=== PATIENT | male | born 1970 | race Caucasian/White ===

== ENCOUNTER 2022-05-28 09:37 | Inpatient (IN) ==
[2022-05-28] MEDS ORDERED: Tdap (Boostrix) Vaccine 0.5 ML SYRINGE IM ONE (10:46)
[2022-05-28 12:16] LABS: Basophils % 0.6 %; Eosinophils # 0.1 K/mcL (0.0-0.6); Eosinophils % 0.8 %; Hematocrit 42.4 % (37.5-50.1); Hemoglobin 13.7 g/dL (12.9-16.9); Immature Granulocytes % 0.3 % (0-4); Lymphocytes # 1.9 K/mcL (0.6-4.6); Lymphocytes % 26.9 %; Mean Corpuscular HGB Conc 32.3 g/dL (31.6-35.5); Mean Corpuscular Volume 89.6 fL (83.0-100.0); Mean Platelet Volume 10.1 fL (9.4-12.4); Monocytes # 0.8 K/mcL (0.0-1.3); Monocytes % 10.7 %; Neutrophils # 4.3 K/mcL (1.6-8.9); Platelet Count 240 K/mcL (140-400); Red Blood Count 4.73 M/mcL (4.19-5.50); Red Cell Distribution Width 13.6 % (11.5-14.5); Segmented Neutrophils % 60.7 %; White Blood Count 7.1 K/mcL (4.3-11.1)
[2022-05-28 12:47] LABS: Estimated Average Glucose 97 mg/dl
[2022-05-28 12:49] LABS: Acetaminophen < 10 mcg/mL (10-20); Alanine Aminotransferase 18 Units/L (7-52); Albumin/Globulin Ratio 1.7 (1.1-2.2); Alkaline Phosphatase 48 Units/L (34-104); Aspartate Amino Transferase 16 Units/L (13-39); BUN/Creatinine Ratio 14 (6-26); Bilirubin,Direct 0.1 mg/dL (0.0-0.2); Bilirubin,Indirect 0.2 mg/dL (0.0-1.0); Bilirubin,Total 0.3 mg/dL (0.3-1.0); Blood Urea Nitrogen 9 mg/dL (6-20); Calcium 9.8 mg/dL (8.6-10.3); Carbon Dioxide 31 mEq/L (23-29); Chloride 102 mEq/L (98-107); Cholesterol 149 mg/dL (< 200); Ethanol < 10 mg/dL (Less than 10); Globulin 2.4 g/dL (2.4-3.5); Glucose 75 mg/dL (70-105); HDL Cholesterol 37 mg/dL (40-59); LDL Cholesterol,Calculated 92 mg/dL (< 100); Osmolality,Calculated 281 (280-300); Potassium 4.3 mEq/L (3.5-5.1); Salicylate < 2.5 mg/dL (15.0-30.0); Sodium 137 mEq/L (136-145); Total Protein 6.4 g/dL (6.4-8.9); Triglycerides 101 mg/dL (< 150); eGFR For African Americans > 60 (> 60); eGFR For Non-African Americans > 60 (> 60)
[2022-05-28] MEDS ORDERED: Bisacodyl 10 MG RECTAL SUPPOSITORY RC PRN (16:16)
[2022-05-28] MEDS ORDERED: GuaiFENesin Liq 200 MG/10 ML UDC PO PRN (16:16)
[2022-05-28] MEDS ORDERED: Acetaminophen 325 MG TABLET PO PRN (16:16)
[2022-05-28] MEDS ORDERED: *HR* LORazepam 1 MG TABLET PO PRN (16:16)
[2022-05-28] MEDS ORDERED: Naloxone 0.4 MG/ML INJ IVP PRN (16:17)
[2022-05-28] MEDS ORDERED: *HR* LORazepam 2 MG/ML VIAL IVP ONE (17:06)
[2022-05-28] MEDS: TETRABENAZINE 25 MG PO SCH (21:40)
[2022-05-28] MEDS: traZODone 50 MG TABLET PO SCH (22:46)
[2022-05-28] MEDS: Temazepam 15 MG CAPSULE PO SCH (22:46)
[2022-05-28] MEDS: Chlorhexidine Rinse 15 ML MOUTHWASH MM SCH (22:47)
[2022-05-28] MEDS: Desitin (Zinc Oxide) Max 57 GM TUBE TP SCH (22:47)
[2022-05-29] MEDS: Desitin (Zinc Oxide) Max 57 GM TUBE TP SCH ×3 (09:00→21:18)
[2022-05-29] MEDS: Loratadine 10 MG TABLET PO SCH (10:03)
[2022-05-29] MEDS: Chlorhexidine Rinse 15 ML MOUTHWASH MM SCH ×2 (10:04→20:59)
[2022-05-29] MEDS: TETRABENAZINE 25 MG PO SCH ×3 (10:10→21:18)
[2022-05-29 11:47] LABS: Amorphous Sediment,Urine Few per hpf (None-Few); Bacteria,Urine Few per hpf (None-Few); Bilirubin,Urine Negative (Negative); Blood,Urine Negative (Negative); Clarity,Urine Turbid (Clear); Color,Urine Yellow (Yellow); Glucose,Urine (UA) Normal (Normal); Ketones,Urine Negative (Negative); Leukocyte Esterase,Urine Small (Negative); Mucus,Urine Few per lpf (None-Few); Nitrite,Urine Negative (Negative); PH,Urine 6.5 pH Units (5.0-8.0); Protein,Urine Trace mg/dL (Neg-Trace); Specific Gravity,Urine 1.017 (1.010-1.025); Urobilinogen,Urine Normal (Normal)
[2022-05-29 11:48] LABS: Amphetamine Screen,Urine Negative ng/mL (Cutoff=1000); Barbiturate Screen,Urine Negative ng/mL (Cutoff=200); Benzodiazepines Screen,Urine Positive ng/mL (Cutoff=200); Cannabinoid Screen,Urine Negative ng/mL (Cutoff = 50); Cocaine Screen,Urine Negative ng/mL (Cutoff= 300); Opiate Screen,Urine Negative ng/mL (Cutoff=300); Phencyclidine Screen,Urine Negative ng/mL (Cutoff=25)
[2022-05-29] MEDS: traZODone 50 MG TABLET PO SCH (20:58)
[2022-05-29] MEDS: Temazepam 15 MG CAPSULE PO SCH (20:58)
[2022-05-30 03:47] LABS: Basophils % 0.4 %; Eosinophils # 0.1 K/mcL (0.0-0.6); Eosinophils % 0.9 %; Hematocrit 43.6 % (37.5-50.1); Hemoglobin 14.4 g/dL (12.9-16.9); Immature Granulocytes % 0.2 % (0-4); Lymphocytes % 32.9 %; Mean Corpuscular Hemoglobin 29.2 pg (28.0-33.3); Mean Corpuscular Volume 88.4 fL (83.0-100.0); Mean Platelet Volume 10.1 fL (9.4-12.4); Monocytes % 10.7 %; Neutrophils # 4.9 K/mcL (1.6-8.9); Platelet Count 223 K/mcL (140-400); Red Blood Count 4.93 M/mcL (4.19-5.50); Red Cell Distribution Width 13.8 % (11.5-14.5); Segmented Neutrophils % 54.9 %
[2022-05-30 04:09] LABS: BUN/Creatinine Ratio 21 (6-26); Blood Urea Nitrogen 13 mg/dL (6-20); Calcium 10.4 mg/dL (8.6-10.3); Carbon Dioxide 35 mEq/L (23-29); Chloride 101 mEq/L (98-107); Glucose 78 mg/dL (70-105); Osmolality,Calculated 281 (280-300); Potassium 4.6 mEq/L (3.5-5.1); Sodium 136 mEq/L (136-145)
[2022-05-30] MEDS: Loratadine 10 MG TABLET PO SCH (10:24)
[2022-05-30] MEDS: Chlorhexidine Rinse 15 ML MOUTHWASH MM SCH ×3 (10:26→22:18)
[2022-05-30] MEDS: TETRABENAZINE 25 MG PO SCH (10:29)
[2022-05-30] MEDS: Desitin (Zinc Oxide) Max 57 GM TUBE TP SCH ×3 (11:59→22:05)
[2022-05-30] MEDS: Temazepam 15 MG CAPSULE PO SCH (21:45)
[2022-05-30] MEDS: traZODone 50 MG TABLET PO SCH (21:46)
[2022-05-31] MEDS: Loratadine 10 MG TABLET PO SCH (09:54)
[2022-05-31] MEDS: Desitin (Zinc Oxide) Max 57 GM TUBE TP SCH ×2 (09:55→15:23)
[2022-05-31] MEDS: Chlorhexidine Rinse 15 ML MOUTHWASH MM SCH ×2 (09:55→21:23)
[2022-05-31] MEDS: traZODone 50 MG TABLET PO SCH (21:14)
[2022-05-31] MEDS: Temazepam 15 MG CAPSULE PO SCH (21:14)
[2022-05-31] MEDS ORDERED: *HR* LORazepam 2 MG/ML VIAL IM STA (23:01)
[2022-06-01] MEDS: Desitin (Zinc Oxide) Max 57 GM TUBE TP SCH ×4 (05:36→21:28)
[2022-06-01] MEDS: Chlorhexidine Rinse 15 ML MOUTHWASH MM SCH ×2 (09:42→21:34)
[2022-06-01] MEDS: Loratadine 10 MG TABLET PO SCH (09:53)
[2022-06-01] MEDS: *HR* LORazepam 1 MG TABLET PO SCH ×2 (18:07→21:32)
[2022-06-01] MEDS: traZODone 50 MG TABLET PO SCH (21:27)
[2022-06-01] MEDS: Temazepam 15 MG CAPSULE PO SCH (21:27)
[2022-06-02] MEDS: *HR* LORazepam 1 MG TABLET PO SCH ×4 (08:57→20:41)
[2022-06-02] MEDS: Desitin (Zinc Oxide) Max 57 GM TUBE TP SCH ×3 (08:58→20:48)
[2022-06-02] MEDS: Loratadine 10 MG TABLET PO SCH (08:58)
[2022-06-02] MEDS: Chlorhexidine Rinse 15 ML MOUTHWASH MM SCH ×2 (08:58→20:41)
[2022-06-02] MEDS: traZODone 50 MG TABLET PO SCH (20:42)
[2022-06-02] MEDS: Temazepam 15 MG CAPSULE PO SCH (20:48)
[2022-06-03] MEDS: *HR* LORazepam 1 MG TABLET PO SCH ×4 (09:28→21:22)
[2022-06-03] MEDS: Loratadine 10 MG TABLET PO SCH (09:28)
[2022-06-03] MEDS: Desitin (Zinc Oxide) Max 57 GM TUBE TP SCH ×3 (09:29→21:23)
[2022-06-03] MEDS: Chlorhexidine Rinse 15 ML MOUTHWASH MM SCH ×2 (09:29→21:23)
[2022-06-03] MEDS ORDERED: CALMOSEPTINE OINTMENT TP SCH (21:00)
[2022-06-03] MEDS: traZODone 50 MG TABLET PO SCH (21:23)
[2022-06-03] MEDS: Temazepam 15 MG CAPSULE PO SCH (21:25)
[2022-06-04] MEDS: *HR* LORazepam 1 MG TABLET PO SCH ×4 (08:28→21:47)
[2022-06-04] MEDS: Desitin (Zinc Oxide) Max 57 GM TUBE TP SCH ×3 (08:28→21:54)
[2022-06-04] MEDS: Loratadine 10 MG TABLET PO SCH (08:28)
[2022-06-04] MEDS: Chlorhexidine Rinse 15 ML MOUTHWASH MM SCH ×2 (08:29→22:00)
[2022-06-04] MEDS: CALMOSEPTINE OINTMENT TP SCH ×5 (12:25→21:54)
[2022-06-04] MEDS: Temazepam 15 MG CAPSULE PO SCH (21:46)
[2022-06-04] MEDS: traZODone 50 MG TABLET PO SCH (21:48)
[2022-06-05 04:38] LABS: Basophils % 0.7 %; Eosinophils # 0.2 K/mcL (0.0-0.6); Eosinophils % 3.4 %; Hematocrit 41.9 % (37.5-50.1); Hemoglobin 13.5 g/dL (12.9-16.9); Lymphocytes # 3.3 K/mcL (0.6-4.6); Lymphocytes % 56.2 %; Mean Corpuscular HGB Conc 32.2 g/dL (31.6-35.5); Mean Corpuscular Hemoglobin 28.8 pg (28.0-33.3); Mean Corpuscular Volume 89.3 fL (83.0-100.0); Monocytes # 0.8 K/mcL (0.0-1.3); Monocytes % 13.4 %; Neutrophils # 1.6 K/mcL (1.6-8.9); Platelet Count 245 K/mcL (140-400); Red Blood Count 4.69 M/mcL (4.19-5.50); Red Cell Distribution Width 13.6 % (11.5-14.5); Segmented Neutrophils % 26.3 %; White Blood Count 5.9 K/mcL (4.3-11.1)
[2022-06-05 05:01] LABS: Alanine Aminotransferase 13 Units/L (7-52); Albumin 3.9 g/dL (3.5-5.7); Albumin/Globulin Ratio 1.6 (1.1-2.2); Alkaline Phosphatase 50 Units/L (34-104); Aspartate Amino Transferase 17 Units/L (13-39); BUN/Creatinine Ratio 17 (6-26); Bilirubin,Total 0.2 mg/dL (0.3-1.0); Blood Urea Nitrogen 16 mg/dL (6-20); Calcium 10.1 mg/dL (8.6-10.3); Carbon Dioxide 31 mEq/L (23-29); Chloride 103 mEq/L (98-107); Globulin 2.5 g/dL (2.4-3.5); Glucose 82 mg/dL (70-105); Osmolality,Calculated 286 (280-300); Potassium 4.9 mEq/L (3.5-5.1); Sodium 138 mEq/L (136-145); Total Protein 6.4 g/dL (6.4-8.9)
[2022-06-05] MEDS: *HR* LORazepam 1 MG TABLET PO SCH ×4 (08:55→21:26)
[2022-06-05] MEDS: Loratadine 10 MG TABLET PO SCH (08:55)
[2022-06-05] MEDS: Desitin (Zinc Oxide) Max 57 GM TUBE TP SCH ×3 (08:56→21:26)
[2022-06-05] MEDS: Chlorhexidine Rinse 15 ML MOUTHWASH MM SCH ×3 (08:56→21:39)
[2022-06-05] MEDS: CALMOSEPTINE OINTMENT TP SCH ×5 (08:56→21:37)
[2022-06-05] MEDS: Temazepam 15 MG CAPSULE PO SCH (21:25)
[2022-06-05] MEDS: traZODone 50 MG TABLET PO SCH (21:25)
[2022-06-06] MEDS: Loratadine 10 MG TABLET PO SCH (10:10)
[2022-06-06] MEDS: Chlorhexidine Rinse 15 ML MOUTHWASH MM SCH ×2 (10:10→20:58)
[2022-06-06] MEDS: Desitin (Zinc Oxide) Max 57 GM TUBE TP SCH ×3 (10:11→20:59)
[2022-06-06] MEDS: CALMOSEPTINE OINTMENT TP SCH ×5 (10:11→20:59)
[2022-06-06] MEDS: *HR* LORazepam 1 MG TABLET PO SCH ×4 (10:11→20:57)
[2022-06-06] MEDS: Temazepam 15 MG CAPSULE PO SCH (20:58)
[2022-06-06] MEDS: traZODone 50 MG TABLET PO SCH (20:58)
[2022-06-07] MEDS: *HR* LORazepam 1 MG TABLET PO SCH ×4 (09:15→21:16)
[2022-06-07] MEDS: CALMOSEPTINE OINTMENT TP SCH ×5 (09:15→21:24)
[2022-06-07] MEDS: Desitin (Zinc Oxide) Max 57 GM TUBE TP SCH ×3 (09:15→21:23)
[2022-06-07] MEDS: Chlorhexidine Rinse 15 ML MOUTHWASH MM SCH ×2 (09:15→21:23)
[2022-06-07] MEDS: Loratadine 10 MG TABLET PO SCH (09:15)
[2022-06-07] MEDS: Ergocalciferol (VIT D2) 50,000 UNIT (1.25MG) CAP PO SCH (09:18)
[2022-06-07] MEDS: traZODone 50 MG TABLET PO SCH (21:14)
[2022-06-07] MEDS: Temazepam 15 MG CAPSULE PO SCH (21:15)
[2022-06-08] MEDS: *HR* LORazepam 1 MG TABLET PO SCH ×4 (08:42→23:34)
[2022-06-08] MEDS: Loratadine 10 MG TABLET PO SCH (08:42)
[2022-06-08] MEDS: Chlorhexidine Rinse 15 ML MOUTHWASH MM SCH ×2 (08:43→23:35)
[2022-06-08] MEDS: CALMOSEPTINE OINTMENT TP SCH ×5 (08:43→23:36)
[2022-06-08] MEDS: Desitin (Zinc Oxide) Max 57 GM TUBE TP SCH ×3 (08:43→23:36)
[2022-06-08] MEDS: traZODone 50 MG TABLET PO SCH (23:35)
[2022-06-08] MEDS: Temazepam 15 MG CAPSULE PO SCH (23:40)
[2022-06-09] MEDS: *HR* LORazepam 1 MG TABLET PO SCH ×4 (07:34→21:23)
[2022-06-09] MEDS: Loratadine 10 MG TABLET PO SCH (07:35)
[2022-06-09] MEDS: Desitin (Zinc Oxide) Max 57 GM TUBE TP SCH ×3 (07:36→21:22)
[2022-06-09] MEDS: Chlorhexidine Rinse 15 ML MOUTHWASH MM SCH ×2 (07:36→21:22)
[2022-06-09] MEDS: CALMOSEPTINE OINTMENT TP SCH ×5 (07:36→21:23)
[2022-06-09] MEDS: Temazepam 15 MG CAPSULE PO SCH (21:22)
[2022-06-09] MEDS: traZODone 50 MG TABLET PO SCH (21:23)
[2022-06-10] MEDS: *HR* LORazepam 1 MG TABLET PO SCH ×4 (09:58→21:33)
[2022-06-10] MEDS: Desitin (Zinc Oxide) Max 57 GM TUBE TP SCH ×3 (09:59→21:34)
[2022-06-10] MEDS: CALMOSEPTINE OINTMENT TP SCH ×5 (09:59→21:34)
[2022-06-10] MEDS: Chlorhexidine Rinse 15 ML MOUTHWASH MM SCH ×2 (09:59→21:34)
[2022-06-10] MEDS: Loratadine 10 MG TABLET PO SCH (09:59)
[2022-06-10] MEDS: Temazepam 15 MG CAPSULE PO SCH (21:34)
[2022-06-10] MEDS: traZODone 50 MG TABLET PO SCH (21:34)
[2022-06-11] MEDS: *HR* LORazepam 1 MG TABLET PO SCH ×4 (08:57→21:06)
[2022-06-11] MEDS: CALMOSEPTINE OINTMENT TP SCH ×5 (08:58→21:06)
[2022-06-11] MEDS: Loratadine 10 MG TABLET PO SCH (08:58)
[2022-06-11] MEDS: Desitin (Zinc Oxide) Max 57 GM TUBE TP SCH ×3 (08:58→21:07)
[2022-06-11] MEDS: Chlorhexidine Rinse 15 ML MOUTHWASH MM SCH ×2 (13:02→21:06)
[2022-06-11] MEDS: traZODone 50 MG TABLET PO SCH (21:06)
[2022-06-11] MEDS: Temazepam 15 MG CAPSULE PO SCH (21:06)
[2022-06-12] MEDS: Loratadine 10 MG TABLET PO SCH (09:51)
[2022-06-12] MEDS: *HR* LORazepam 1 MG TABLET PO SCH ×4 (09:52→22:11)
[2022-06-12] MEDS: Desitin (Zinc Oxide) Max 57 GM TUBE TP SCH ×3 (09:52→22:10)
[2022-06-12] MEDS: CALMOSEPTINE OINTMENT TP SCH ×5 (09:52→22:10)
[2022-06-12] MEDS: Chlorhexidine Rinse 15 ML MOUTHWASH MM SCH ×2 (09:53→22:11)
[2022-06-12] MEDS: Temazepam 15 MG CAPSULE PO SCH (22:11)
[2022-06-12] MEDS: traZODone 50 MG TABLET PO SCH (22:11)
[2022-06-13] MEDS: Loratadine 10 MG TABLET PO SCH (10:01)
[2022-06-13] MEDS: *HR* LORazepam 1 MG TABLET PO SCH ×4 (10:01→22:34)
[2022-06-13] MEDS: Chlorhexidine Rinse 15 ML MOUTHWASH MM SCH ×2 (10:02→22:36)
[2022-06-13] MEDS: CALMOSEPTINE OINTMENT TP SCH ×5 (10:13→22:36)
[2022-06-13] MEDS: Desitin (Zinc Oxide) Max 57 GM TUBE TP SCH ×3 (10:18→22:35)
[2022-06-13] MEDS: Temazepam 15 MG CAPSULE PO SCH (22:34)
[2022-06-13] MEDS: traZODone 50 MG TABLET PO SCH (22:34)
[2022-06-14] MEDS: Loratadine 10 MG TABLET PO SCH (10:20)
[2022-06-14] MEDS: Chlorhexidine Rinse 15 ML MOUTHWASH MM SCH ×2 (10:20→23:09)
[2022-06-14] MEDS: *HR* LORazepam 1 MG TABLET PO SCH ×4 (10:20→23:08)
[2022-06-14] MEDS: Desitin (Zinc Oxide) Max 57 GM TUBE TP SCH ×3 (10:21→23:17)
[2022-06-14] MEDS: CALMOSEPTINE OINTMENT TP SCH ×5 (10:22→23:16)
[2022-06-14] MEDS: Ergocalciferol (VIT D2) 50,000 UNIT (1.25MG) CAP PO SCH (10:24)
[2022-06-14] MEDS: Temazepam 15 MG CAPSULE PO SCH (23:08)
[2022-06-14] MEDS: traZODone 50 MG TABLET PO SCH (23:08)
[2022-06-15] MEDS: CALMOSEPTINE OINTMENT TP SCH ×3 (09:22→15:18)
[2022-06-15] MEDS: Chlorhexidine Rinse 15 ML MOUTHWASH MM SCH (09:22)
[2022-06-15] MEDS: *HR* LORazepam 1 MG TABLET PO SCH ×4 (09:23→21:53)
[2022-06-15] MEDS: Desitin (Zinc Oxide) Max 57 GM TUBE TP SCH ×2 (09:24→15:07)
[2022-06-15] MEDS: Loratadine 10 MG TABLET PO SCH (09:24)
[2022-06-15] MEDS: traZODone 50 MG TABLET PO SCH (21:52)
[2022-06-16] MEDS: CALMOSEPTINE OINTMENT TP SCH ×7 (05:19→22:25)
[2022-06-16] MEDS: Desitin (Zinc Oxide) Max 57 GM TUBE TP SCH ×4 (05:19→22:25)
[2022-06-16] MEDS: Temazepam 15 MG CAPSULE PO SCH ×2 (05:20→22:26)
[2022-06-16] MEDS: *HR* LORazepam 1 MG TABLET PO SCH ×4 (08:36→22:25)
[2022-06-16] MEDS: Loratadine 10 MG TABLET PO SCH (08:36)
[2022-06-16] MEDS ORDERED: Cyanocobalamin (B-12) 1,000 MCG/ML VIAL IM SCH (09:00)
[2022-06-16] MEDS: traZODone 50 MG TABLET PO SCH (22:26)
[2022-06-17] MEDS: *HR* LORazepam 1 MG TABLET PO SCH ×4 (09:42→22:42)
[2022-06-17] MEDS: CALMOSEPTINE OINTMENT TP SCH ×5 (09:43→22:43)
[2022-06-17] MEDS: Desitin (Zinc Oxide) Max 57 GM TUBE TP SCH ×3 (09:43→22:42)
[2022-06-17] MEDS: Loratadine 10 MG TABLET PO SCH (09:43)
[2022-06-17] MEDS: traZODone 50 MG TABLET PO SCH (22:43)
[2022-06-17] MEDS: Temazepam 15 MG CAPSULE PO SCH (22:43)
[2022-06-18] MEDS: Loratadine 10 MG TABLET PO SCH (09:25)
[2022-06-18] MEDS: *HR* LORazepam 1 MG TABLET PO SCH ×4 (09:25→21:29)
[2022-06-18] MEDS: Desitin (Zinc Oxide) Max 57 GM TUBE TP SCH ×2 (09:26→15:52)
[2022-06-18] MEDS: CALMOSEPTINE OINTMENT TP SCH ×3 (09:26→15:52)
[2022-06-18] MEDS: Temazepam 15 MG CAPSULE PO SCH (21:29)
[2022-06-18] MEDS: traZODone 50 MG TABLET PO SCH (21:30)
[2022-06-19] MEDS: *HR* LORazepam 1 MG TABLET PO SCH ×3 (09:28→17:29)
[2022-06-19] MEDS: Loratadine 10 MG TABLET PO SCH (09:28)
[2022-06-19] MEDS: CALMOSEPTINE OINTMENT TP SCH ×3 (09:29→17:36)
[2022-06-19] MEDS: Desitin (Zinc Oxide) Max 57 GM TUBE TP SCH ×2 (09:29→17:34)
[2022-06-20] MEDS: Temazepam 15 MG CAPSULE PO SCH ×2 (01:31→22:10)
[2022-06-20] MEDS: *HR* LORazepam 1 MG TABLET PO SCH ×5 (01:31→22:10)
[2022-06-20] MEDS: Desitin (Zinc Oxide) Max 57 GM TUBE TP SCH ×5 (01:31→22:20)
[2022-06-20] MEDS: CALMOSEPTINE OINTMENT TP SCH ×8 (01:31→22:21)
[2022-06-20] MEDS: traZODone 50 MG TABLET PO SCH ×2 (01:31→22:11)
[2022-06-20] MEDS: Loratadine 10 MG TABLET PO SCH (09:55)
[2022-06-21] MEDS ORDERED: Haloperidol Lactate 5 MG/ML VIAL IM ONE (05:56)
[2022-06-21] MEDS: Loratadine 10 MG TABLET PO SCH (08:55)
[2022-06-21] MEDS: *HR* LORazepam 1 MG TABLET PO SCH ×4 (08:55→21:38)
[2022-06-21] MEDS: Desitin (Zinc Oxide) Max 57 GM TUBE TP SCH ×3 (08:56→21:40)
[2022-06-21] MEDS: CALMOSEPTINE OINTMENT TP SCH ×5 (08:56→21:40)
[2022-06-21] MEDS: Ergocalciferol (VIT D2) 50,000 UNIT (1.25MG) CAP PO SCH (09:30)
[2022-06-21] MEDS: traZODone 50 MG TABLET PO SCH (21:38)
[2022-06-21] MEDS: Temazepam 15 MG CAPSULE PO SCH (21:41)
[2022-06-22] MEDS: Loratadine 10 MG TABLET PO SCH (08:29)
[2022-06-22] MEDS: *HR* LORazepam 1 MG TABLET PO SCH ×2 (08:29→12:44)
[2022-06-22] MEDS: Desitin (Zinc Oxide) Max 57 GM TUBE TP SCH (08:30)
[2022-06-22] MEDS: CALMOSEPTINE OINTMENT TP SCH ×2 (08:30)
[2022-06-22 08:47] VITALS: BP 103/61; PULSE 80; TEMP 97.2; O2SAT 94
== END 2022-06-22 15:35 | DRG 42 ==
LOC: EMEROOARM 09:37 → 3ANU 09:37 → SUATTDRO 16:19 → 3ANU 17:25 → SUATTDRO 05-30 14:06
PROVIDERS: ADMIT Internal Medicine; ATTEND Internal Medicine